=== PATIENT | male | born 1985 | race Two or more races ===

== ENCOUNTER 2017-04-16 06:30 | Day surgery (SDC) | payer OTHER ==
[2017-04-16 07:10] LABS: Basophils # (auto) 0 uL; Basophils % (auto) 0.6 % (0.0-2.0); Eosinophils # (auto) 0.3 uL; Eosinophils % (auto) 4.7 % (0.0-7.0); Hematocrit 45.8 % (41.0-53.0); Hemoglobin 15.7 g/dL (13.5-17.5); Lymphocytes # (auto) 1.8 uL; Lymphocytes % (auto) 27.7 % (10.0-50.0); Mean Corpuscular Hemoglobin 32.1 pg (28.0-32.0); Mean Corpuscular Hgb Conc. 34.2 g/dL (32.0-36.0); Mean Corpuscular Volume 93.7 fL (80.0-100.0); Mean Platelet Volume 8.3 fL (7.4-10.4); Monocytes # (auto) 0.5 uL; Neutrophils # (auto) 3.8 uL; Platelet Count (auto) 314 10^3/uL (140-450); Red Cell Distribution Width 13.1 % (11.6-16.0); White Blood Cell 6.4 10^3/uL (4.4-10.8)
[2017-04-16 07:26] LABS: INR 0.99 (0.9-1.15); Partial Thromboplastin Time 28.7 sec (22.64-33.71); Prothrombin Time 10.7 sec (9.37-12.3)
[2017-04-16] MEDS ORDERED: SODIUM CHLORIDE LOCK 10 ML ONE (08:52)
[2017-04-16] MEDS ORDERED: diphenhdrAMINE HCL 50 MG/1 ML VL ONE (08:53)
[2017-04-16] MEDS: MIDAZOLAM HCL 5 MG/ML-1ML VIAL ONE ×3 (10:00→10:06)
[2017-04-16] MEDS: fentaNYL CITRATE 100 MCG/2 ML VL ONE ×3 (10:00→10:06)
[2017-04-16 10:50] VITALS: BP 123/77
== END 2017-04-16 10:53 ==
LOC: GI 06:30
PROVIDERS: ATTEND Internal Medicine Gastroenterology
DX: K51.90 Ulcerative colitis, unspecified, without complications (principal)
CPT/HCPCS: 36415; 45380; 85025; 85610; 85730; 88305; J1200; J2250; J3010; J7030